=== PATIENT | female | born 1985 | race Caucasian/White ===

== ENCOUNTER 2022-12-19 21:05 | Emergency (ER) | payer OTHER, SELFPAY ==
--- NOTE | 2022-12-19 21:07 | USR_ITS ---
PROCEDURE INFORMATION: Exam: US Abdomen, Limited; Right Upper Quadrant Exam date and time: 12/19/2022 9:21 PM Age: 37 years old Clinical indication: Abdominal pain; Prior surgery; Surgery date: 6+ months; Surgery type: Gastric sleeve 2021; Patient HX: Ruq pain x 6 hours. Prior intermittent ruq pain episodes. TECHNIQUE: Imaging protocol: Real time ultrasound of the abdomen with image documentation. Limited exam focused on the right upper quadrant. COMPARISON: No relevant prior studies available. FINDINGS: Liver: 15 mm hyperechoic lesion in the central liver may reflect an hemangioma, consider further evaluation with CT of the liver for further characterization. Gallbladder: Cholelithiasis, gallbladder wall prominence to 3.3 mm and a positive Arellano's sign, may reflect an evolving cholecystitis, nuclear medicine HIDA scan could further evaluate this. Biliary ducts: Normal. No stones. No dilation. Pancreas: Visualized pancreas is unremarkable. Right kidney: Normal. No mass. No hydronephrosis. US/US gall bladder [id number] IMPRESSION: 1. Cholelithiasis, gallbladder wall prominence to 3.3 mm and a positive Arellano's sign, may reflect an evolving cholecystitis, nuclear medicine HIDA scan could further evaluate this. 2. 15 mm hyperechoic lesion in the central liver may reflect an hemangioma, consider further evaluation with CT of the liver for further characterization.
[2022-12-19 21:22] LABS: Basophils % 0.2 %; Eosinophils % 0.4 %; Hematocrit 35.7 % (37.0-47.0); Hemoglobin 11.2 g/dL (11.5-15.3); Lymphocytes # 1.4 10^3/uL (0.8-4.8); Lymphocytes % 17.5 %; Mean Corpuscular HGB Conc 31.4 g/dL (30.0-36.0); Mean Corpuscular Hemoglobin 25.7 pg (28.0-34.0); Mean Corpuscular Volume 82.1 fl (81-99); Mean Platelet Volume 9.8 fL (7.4-10.4); Monocytes # 0.5 10^3/uL (0.2-0.9); Monocytes % 6.5 %; Neutrophils # 6.09 10^3/uL (1.8-7.7); Neutrophils % 75.2 %; Nucleated Red Blood Cells % 0 %; Platelet Count 356 10^3/cmm (130-400); Red Blood Count 4.35 10^6/uL (4.1-5.3); Red Cell Distribution Width 12.7 % (12.1-15.1); White Blood Count 8.1 10^3/uL (4.0-10.0)
[2022-12-19 21:37] LABS: Alanine Aminotransferase 128 U/L (0-33); Albumin Level 3.6 g/dL (3.5-5.2); Alkaline Phosphatase 58 U/L (35-105); Anion Gap 11.1 (5-19); Aspartate Amino Transferase 305 U/L (0-32); Blood Urea Nitrogen 10 mg/dL (6-20); Calcium 8.4 mg/dL (8.5-10.5); Carbon Dioxide 25 mmol/L (22-29); Chloride 106 mmol/L (98-107); Globulin 2.9 g/dL (1.3-4.6); Glomerular Filtration Rate 80.3 mL/min (90-130); Glucose 90 mg/dL (65-115); HCG, Serum Qual Negative (Negative); Osmolality Calculated 285 mOsm/kg (285-295); Potassium 4.1 mmol/L (3.5-5.1); Sodium 138 mmol/L (136-145); Total Bilirubin 0.8 mg/dL (0.15-1.2); Total Protein 6.5 g/dL (6.6-8.7)
[2022-12-19 21:51] VITALS: BP 127/79; PULSE 75; RESP 16; TEMP 36.4; O2SAT 99; BMI 34.9
[2022-12-19 22:30] LABS: Lactic Sepsis W/Reflex 0.6 mmol/L (0.5-2.2)
--- NOTE | 2022-12-19 22:36 | ED_ITS ---
HPI - Abdominal Pain General: Chief Complaint: Abdominal Pain Stated Complaint: Rt ABD Pain, Possible Gall Bladder Time Seen by Provider: 12/19/22 21:55 Source: patient Mode of arrival: ambulatory Limitations: no limitations History of Present Illness: Patient is a nice 37-year-old female presents to ED today with a complaint of right upper quadrant pain that began around 3 PM today. Patient states she has been diagnosed with biliary colic in the past but states her symptoms have previously been controlled with diet. She states her episode of pain starting at 3 today was the worst its ever been and did not seem to subside which is what prompted her visit. She has had nausea without vomiting. She has not noticed any changes in her bowel habits. No fevers or chills. Denies yellowing to her skin or eyes. Previous abdominal surgeries include a gastric sleeve approximately a year ago. MD elicited complaint: abdominal pain Pertinent past history: other (biliary colic, gastric sleeve) Onset (ago): hour(s) Pain Consistency: constant Location: RUQ Severity: severe Quality: sharp Radiation: back Migration to: no migration Exacerbating factors: eating Relieving factors: nothing Associated Symptoms: Reports nausea; Denies change in bowel habits, chills, dysuria, fever(s), hematuria, hematemesis and vomiting Related Data: Patient : No Review of Systems Const: Denies: fever(s), chills, body aches, fatigue or malaise Card: Denies: chest pain Resp: Denies: dyspnea GI: Reports: abdominal pain and nausea; Denies: vomiting, hematemesis or change in bowel habits : Denies: flank pain, dysuria or hematuria Skin/Breast: Denies: rash Neuro: Denies: headache(s), numbness in extremities, weakness in extremities, sensory changes or dizziness Physical Exam Const: COMMON NORMALS: no acute distress, patient oriented x3, no limitations, alert and well nourished GENERAL APPEARANCE: cooperative ORIENTAT ION/CONSCIOUSNESS: Yes awake, Yes oriented to person, Yes oriented to place and Yes oriented to time HENMT: COMMON NORMALS: normocephalic and atraumatic HEAD & SCALP: normal to inspection, normocephalic and atraumatic Eye: COMMON NORMALS: no scleral icterus Resp: COMMON NORMALS: normal respiratory effort and clear to auscultation bilaterally AUSCULTATION: clear to auscultation bilaterally Cardio: COMMON NORMALS: regular rate and regular rhythm RATE: regular rate RHYTHM: regular rhythm GI: COMMON NORMALS: Normal to inspection, nondistended, normoactive bowel sounds present, Soft to palpation and no masses INSPECTION: Yes normal to inspection AUSCULTATION: Yes normoactive bowel sounds PALPATION: Yes Soft to palpation, Yes Tenderness to palpation present (GI) (RUQ), Yes Guarding due to palpation present (GI) and No Rigid due to palpation : COMMON NORMALS: Yes no CVA tenderness BLADDER/KIDNEY EXAM: Yes no CVA tenderness Back/Pelvis: COMMON NORMALS: no CVA tenderness Extremity: COMMON NORMALS: normal to inspection GENERAL: Yes normal exam except as noted Neuro: KIMMIE COMA SCALE: document GCS findings Kimmie coma scale eye opening: Spontaneous Lupton coma scale verbal response: Orientated Kimmie coma scale motor response: Obey commands Lupton coma scale total score: 15 COMMON NORMALS: patient oriented x3, moves all extremities, no focal motor deficits and no sensory deficits noted SENSORIUM/ORIENTATION: Yes alert, Yes oriented to person, Yes oriented to place and Yes oriented to time Skin: COMMON NORMALS: no rashes or lesions noted and no jaundice GENERAL SKIN EXAM: no rashes or lesions noted Course Consultations: Consultation #1: Dr. Aleman/general surgery-recommends transfer for ERCP Consultation #2: Dr. Waddell-hospitalist at [facility] in [place], [place]-accepts admission- will consult with general surgery/GI Vital Signs: Vital signs: Vital Signs Temperature 97.5 F L 12/19/22 21:51 Pulse Rate 75 12/19/22 21:51 Respiratory Rate 16 12/19/22 21:51 Blood Pressure 127/79 12/19/22 21:51 Pulse Oximetry 99 12/19/22 21:51 Oxygen Delivery Me thod 12/19/22 21:51 MDM - Abdominal Pain Medical Decision Making Patient is a nice 37-year-old female here for right upper quadrant pain. Vital signs are stable. Blood work showing a normal white count with normal lactate. She does have elevations to her AST/ALT at 305/128. T. bili normal. Her lipase is almost 5000. US of her gallbladder shows cholelithiasis with gallbladder wall prominence possibly reflecting an evolving cholecystitis. CBD measures 5 mm. Spoke to general surgeon on-call Dr. Aleman who recommends transfer for ERCP. Lab Data 12/19/22 21:16 12/19/22 21:16 Labs/Radiology: Radiology Impressions Gallbladder Ultrasound 12/19/22 21:07 IMPRESSION: 1. Cholelithiasis, gallbladder wall prominence to 3.3 mm and a positive Arellano's sign, may reflect an evolving cholecystitis, nuclear medicine HIDA scan could further evaluate this. 2. 15 mm hyperechoic lesion in the central liver may reflect an hemangioma, consider further evaluation with CT of the liver for further characterization. Laboratory Results WBC 8.1 10^3/uL (4.0-10.0) 12/19/22 21:16 RBC 4.35 10^6/uL (4.1-5.3) 12/19/22 21:16 Hgb 11.2 g/dL (11.5-15.3) L 12/19/22 21:16 Hct 35.7 % (37.0-47.0) L 12/19/22 21:16 MCV 82.1 fl (81-99) 12/19/22 21:16 MCH 25.7 pg (28.0-34.0) L 12/19/22 21:16 MCHC 31.4 g/dL (30.0-36.0) 12/19/22 21:16 RDW 12.7 % (12.1-15.1) 12/19/22 21:16 Plt Count 356 10^3/cmm (130-400) 12/19/22 21:16 MPV 9.8 fL (7.4-10.4) 12/19/22 21:16 Neut % (Auto) 75.2 % 12/19/22 21:16 Lymph % (Auto) 17.5 % 12/19/22 21:16 [place] % (Auto) 6.5 % 12/19/22 21:16 Eos % (Auto) 0.4 % 12/19/22 21:16 Baso % (Auto) 0.2 % 12/19/22 21:16 Neut # (Auto) 6.09 10^3/uL (1.8-7.7) 12/19/22 21:16 Lymph # (Auto) 1.4 10^3/uL (0.8-4.8) 12/19/22 21:16 [place] # (Auto) 0.5 10^3/uL (0.2-0.9) 12/19/22 21:16 Eos # (Auto) 0.0 10^3/uL (0.0-0.8) 12/19/22 21:16 Baso # (Auto) 0.0 10^3/uL (0.0-0.1) 12/19/22 21:16 Nucleated RBC % (auto) 0 % 12/19/22 21:16 Nucleated RBCs # 0.0 /100WBC 12/19/22 21:16 Sodium 138 mmol/L (136-145) 12/19/22 21:16 Potassium 4.1 mmol/L (3.5-5.1) 12/19/22 21:16 Chloride 106 mmol/L (98-107) 12/19/22 21:16 Carbon Dioxide 25 mmol/L (22-29) 12/19/22 21:16 Anion Gap 11.1 (5-19) 12/19/22 21:16 BUN 10 mg/dL (6-20) 12/19/22 21:16 Creatinine 0.8 mg/dL (0.5-0.9) 12/19/22 21:16 GFR Calculation 80.3 mL/min (90-130) L 12/19/22 21:16 Glucose 90 mg/dL (65-115) 12/19/22 21:16 Calculated Osmolality 285 mOsm/kg (285-295) 12/19/22 21:16 Lactic Acid 0.6 mmol/L (0.5-2.2) 12/19/22 21:16 Calcium 8.4 mg/dL (8.5-10.5) L 12/19/22 21:16 Total Bilirubin 0.8 mg/dL (0.15-1.2) 12/19/22 21:16 AST 305 U/L (0-32) H 12/19/22 21:16 ALT 128 U/L (0-33) H 12/19/22 21:16 Alkaline Phosphatase 58 U/L (35-105) 12/19/22 21:16 Total Protein 6.5 g/dL (6.6-8.7) L 12/19/22 21:16 Albumin 3.6 g/dL (3.5-5.2) 12/19/22 21:16 Globulin 2.9 g/dL (1.3-4.6) 12/19/22 21:16 Lipase > 4882 U/L (13-60) H 12/19/22 21:16 HCG, Qual Negative (Negative) 12/19/22 21:16 Urine Color Yellow (Yellow) 12/19/22 22:46 Urine Appearance Clear (CLEAR) 12/19/22 22:46 Urine pH 6 (5-7) 12/19/22 22:46 Ur Specific [place] 1.020 (1.005-1.030) 12/19/22 22:46 Urine Protein Neg (Negative) 12/19/22 22:46 Urine Glucose (UA) Norm (Normal) 12/19/22 22:46 Urine Ketones Negative (Negative) 12/19/22 22:46 Urine Blood 3+ (Negative) H 12/19/22 22:46 Urine Nitrate Negative (Negative) 12/19/22 22:46 Urine Bilirubin 1+ (Negative) H 12/19/22 22:46 Urine Urobilinogen 1 mg/dL (Negative) H 12/19/22 22:46 Ur Leukocyte Esterase Negative (Negative) 12/19/22 22:46 Urine RBC 0-4 /hpf (0-2) H 12/19/22 22:46 Urine WBC 0-4 /hpf (0-5) H 12/19/22 22:46 Ur Squamous Epith Cells 0-4 /hpf (0-5) H 12/19/22 22:46 Amorphous Sediment Not Reportable 12/19/22 22:46 Urine Bacteria 2+ /hpf (NONE) H 12/19/22 22:46 Urine Mucus Trace /hpf 12/19/22 22:46 Discharge Plan Discharge Patient Disposition: Xfer Short-Term Hosp Clinical Impression: Cholelithiasis with choledocholithiasis Condition: Stable Referrals: Tiffanie Madden [Primary Care Provider] - Coding Level of Care Code ED Virtual Office Assistant for Debbie Cannon
[2022-12-19 23:05] LABS: Urine Appearance Clear (CLEAR); Urine Color Yellow (Yellow); pH Urine 6 (5-7)
[2022-12-19 23:06] LABS: Add Urine Culture? Yes; Add Urine Microscopic? YES; Bacteria Urine 2+ /hpf; Bilirubin Urine 1+ (Negative); Blood Urine 3+ (Negative); Glucose Urine UA Norm (Normal); Ketones Urine Negative (Negative); Leukocyte Esterase Urine Negative (Negative); Mucus Urine TRACE /hpf; Nitrate Urine Negative (Negative); Protein Urine Neg (Negative); RBC Urine 0-4 /hpf (0-2); Squamous Epithelial Cell Urine 0-4 /hpf (0-5); Urobilinogen Urine 1 mg/dL (Negative); WBC Urine 0-4 /hpf (0-5)
[2022-12-19] MEDS: piperacillin-tazobactam 3.375 GM in sodium chloride 0.9% (plus) 50 ML IV (23:59)
[2022-12-20 00:40] VITALS: BP 141/81; PULSE 69; RESP 18; O2SAT 99
[2022-12-20 05:48] VITALS: BP 134/69; PULSE 80; RESP 14; O2SAT 100
[2022-12-20 08:08] VITALS: BP 185/104; PULSE 68; RESP 16; O2SAT 100
[2022-12-20] MEDS: ondansetron 2 mg/ML SDV 2 mL 4 MG IVP (08:24)
== END 2022-12-20 08:27 | disposition short-term general hospital (02) ==
PROVIDERS: Emergency Medicine; Emergency Provider Physician Assistant; PCP Registered Nurse
DX: K80.70 Calculus of gallbladder and bile duct without cholecystitis without obstruction (principal)
CPT/HCPCS: 36415; 76705; 80053; 81001; 83605; 83690; 84703; 85025; 87086; 96374; 99285; J2405; J2543